=== PATIENT | male | born 1960 | race Asian ===

== ENCOUNTER 2016-06-26 15:52 | Emergency (ER) | payer BC ==
[~2016-06-26] VITALS: Ht 177.8 cm; Wt 95.3 kg
[2016-06-26 16:01] VITALS: BP_SYST 193
[2016-06-26] MEDS ORDERED: GLIM4TAB PO (16:15)
[2016-06-26] MEDS ORDERED: GLU500 PO (16:15)
[2016-06-26] MEDS ORDERED: SIMV10TA2 PO (16:15)
[2016-06-26] MEDS ORDERED: LOSA50TA3 PO (16:15)
[2016-06-26] MEDS ORDERED: LOSARTAN POTASSIUM 50 MG TABLET (COZAAR) PO ONE (16:45)
[2016-06-26 16:54] LABS: BASOPHILS % (AUTO) 0.5 % (0.0-2.0); EOSINOPHILS % (AUTO) 0.7 % (0.0-4.0); HEMATOCRIT 46.6 % (36-54); HEMOGLOBIN 15.4 g/dL (14.0-18.0); LYMPHOCYTES # (AUTO) 1.3 K/uL (1.0-5.5); LYMPHOCYTES % (AUTO) 24.1 % (20.5-51.5); MEAN CORPUSCULAR HEMOGLOBIN 29 pg (27-31); MEAN CORPUSCULAR HGB CONC 33 % (32-36); MEAN CORPUSCULAR VOLUME 87 fL (79.0-98.0); MONOCYTES # (AUTO) 0.4 K/uL (0.0-1.0); MONOCYTES % (AUTO) 7.7 % (1.7-9.3); NEUTROPHILS # (AUTO) 3.9 K/uL (1.8-7.7); PLATELET COUNT (AUTO) 267 K/uL (130-430); RED BLOOD CELL COUNT(AUTO) 5.35 MIL/uL (4.2-6.2); RED CELL DISTRIBUTION WIDTH 11.9 % (9.0-15.0); WHITE BLOOD COUNT (AUTO) 5.6 K/uL (4.8-10.8)
[2016-06-26 17:13] LABS: ANION GAP 10 (5-15); CALCIUM 9.7 mg/dL (8.4-11.0); CHLORIDE 102 mmol/L (98-107); CREATININE 0.98 mg/dL (0.55-1.30); GLUCOSE 138 mg/dL (70-99); SODIUM SERUM 138 mmol/L (136-145); UREA NITROGEN, BLOOD 13 mg/dL (8-21)
[2016-06-26 17:17] LABS: INR 0.9 (0.80-1.20); PROTHROMBIN TIME 10.3 SECS (9.5-12.5)
[2016-06-26 17:22] LABS: ALANINE AMINOTRANSFERASE 111 U/L (12-78); ALBUMIN 4.5 g/dL (3.4-4.8); ASPARTATE AMINOTRANSFERASE 58 U/L (10-37); GFR AFRICAN AMERICAN 103 mL/min (>90); LIPASE 125 U/L (73-393); TOTAL BILIRUBIN 0.9 mg/dL (0.0-1.0)
[2016-06-26] MEDS ORDERED: NACL 0.9% 1,000 ML IV ONE (18:30)
[2016-06-26] MEDS ORDERED: LIDOCAINE VISCOUS 2%, 15 ML UDC MM ONE (18:30)
[2016-06-26] MEDS ORDERED: BELLADONNA ALKALOIDS/PHENOBARB 5 ML UDC PO ONE (18:30)
[2016-06-26] MEDS ORDERED: MAG-AL HYDROX/SIMETH 30 ML UDC PO ONE (18:30)
[2016-06-26] MEDS ORDERED: BELLADONNA ALKALOIDS/PHENOBARB 16.2 MG TABLET PO ONE (19:45)
[2016-06-26 20:00] VITALS: BP_SYST 131
[2016-06-26 20:11] LABS: BILIRUBIN,URINE NEGATIVE (NEGATIVE); BLOOD, URINE NEGATIVE (NEGATIVE); CLARITY/URINE CLEAR (CLEAR); COLOR,URINE YELLOW (YELLOW); GLUCOSE,URINE NEGATIVE (NEGATIVE); KETONES,URINE TRACE (NEGATIVE); LEUKOCYTE ESTERASE ,URINE NEGATIVE (NEGATIVE); NITRITE, URINE NEGATIVE (NEGATIVE); PH,URINE 5.5 (5.0-8.0); PROTEIN URINE NEGATIVE (NEGATIVE); UROBILINOGEN,URINE 0.2 (0.2-1.0)
== END 2016-06-26 20:00 | disposition home or self-care (01) ==
LOC: SED 15:52
DX: K92.1 Melena (principal); E11.9 Type 2 diabetes mellitus without complications; I10 Essential (primary) hypertension; E78.00 Pure hypercholesterolemia, unspecified; R51 Headache
CPT/HCPCS: 36415; 70450; 80053; 81003; 82272; 83605; 83690; 84484; 85025; 85610; 93005; 96360; 99285; J2001; J7030